=== PATIENT | female | born 1935 | race Caucasian/White ===

== ENCOUNTER 2024-02-04 11:12 | Day surgery (SDC) | payer OTHER, BC ==
[2024-01-28 13:02] VITALS: BMI 26.6
[2024-02-04] MEDS ORDERED: LIDOCAINE 1% P/F 10 MG/ML VIAL ONE (11:18)
[2024-02-04] MEDS ORDERED: TETRACAINE 0.5% OPHTH SOLN 2 ML BOTTLE ONE (11:18)
[2024-02-04] MEDS ORDERED: CARBACHOL 0.01% INTRA-OCULAR 1.5 ML VIAL ONE (11:18)
[2024-02-04] MEDS ORDERED: NEO/POLYMYX B SULF/DEXAMETH OPHTHALMIC 5ML BOTTLE ONE (11:19)
[2024-02-04] MEDS: PHENYLEPHRINE 2.5% OPTHALMIC DROP 2ML BOTTLE ONE (11:35)
[2024-02-04] MEDS: CYCLOPENTOLATE 2% OPHTH SOLN 2 ML BOTTLE ONE (11:35)
[2024-02-04] MEDS: TROPICAMIDE 1% OPHTH SOLN 15 ML BOTTLE ONE (11:35)
[2024-02-04] MEDS: CIPROFLOXACIN 0.3% EYE DROPS 5 ML BOTTLE ONE (11:35)
[2024-02-04 11:46] VITALS: RESP 18
[2024-02-04] MEDS ORDERED: MIDAZOLAM HCL 2 MG/2 ML SINGLE DOSE VIAL ONE (12:45)
[2024-02-04 13:19] VITALS: TEMP 97.2
[2024-02-04 13:48] VITALS: BP 142/68; PULSE 60
== END 2024-02-04 14:05 | disposition home or self-care (01) ==
LOC: FASU 11:12
PROVIDERS: ATTEND Ophthalmology
PROC: 08RJ3JZ Replacement of Right Lens with Synthetic Substitute, Percutaneous Approach (ICD-10-PCS; principal; 2024-02-04 12:51)
DX: H26.8 Other specified cataract (principal)
CPT/HCPCS: 66984; V2632

== ENCOUNTER 2024-02-18 09:09 | Day surgery (SDC) | payer OTHER, BC ==
[2024-02-16 15:41] VITALS: BMI 26.6
[2024-02-18] MEDS ORDERED: TETRACAINE 0.5% OPHTH SOLN 2 ML BOTTLE ONE (09:27)
[2024-02-18] MEDS ORDERED: EPINEPHrine/PF 1 MG/1 ML (1:1,000) AMPULE ONE (09:27)
[2024-02-18] MEDS ORDERED: BSS (NA/CA/MG/K) BALANCED SALT SOLUTION OPHTH SOLN 15 ML BOTTLE ONE (09:27)
[2024-02-18] MEDS ORDERED: LIDOCAINE 1% P/F 10 MG/ML VIAL ONE (09:27)
[2024-02-18] MEDS ORDERED: NEO/POLYMYX B SULF/DEXAMETH OPHTHALMIC 5ML BOTTLE ONE (09:28)
[2024-02-18] MEDS ORDERED: CARBACHOL 0.01% INTRA-OCULAR 1.5 ML VIAL ONE (09:28)
[2024-02-18 09:38] VITALS: RESP 16
[2024-02-18] MEDS: TROPICAMIDE 1% OPHTH SOLN 15 ML BOTTLE ONE (09:40)
[2024-02-18] MEDS: CYCLOPENTOLATE 2% OPHTH SOLN 2 ML BOTTLE ONE (09:40)
[2024-02-18] MEDS: CIPROFLOXACIN 0.3% EYE DROPS 5 ML BOTTLE ONE (09:40)
[2024-02-18] MEDS: PHENYLEPHRINE 2.5% OPTHALMIC DROP 2ML BOTTLE ONE (09:40)
[2024-02-18] MEDS ORDERED: MIDAZOLAM HCL 2 MG/2 ML SINGLE DOSE VIAL ONE (10:49)
[2024-02-18] MEDS ORDERED: ONDANSETRON 4 MG/2 ML VIAL ONE (10:49)
[2024-02-18 12:44] VITALS: TEMP 97.4
[2024-02-18 12:46] VITALS: BP 108/51; PULSE 64
== END 2024-02-18 12:50 | disposition home or self-care (01) ==
LOC: FASU 09:09
PROVIDERS: ATTEND Ophthalmology
PROC: 08RK3JZ Replacement of Left Lens with Synthetic Substitute, Percutaneous Approach (ICD-10-PCS; principal; 2024-02-18 11:33)
DX: H26.8 Other specified cataract (principal)
CPT/HCPCS: 66984; V2632